=== PATIENT | female | born 1990 | race African-American/Black ===

== ENCOUNTER 2023-12-14 16:16 | Emergency (ER) | payer MEDICAID ==
[~2023-12-14] VITALS: Ht 162.6 cm; Wt 58.9 kg
[2023-12-14] VITALS (9 sets, daily range): BP systolic 106–120; BP diastolic 67–90
[~2023-12-14 16:16] MED LIST: PRENATAL + COMP1 PAK PO; ZOFRAN4 MG/TAB PO
[2023-12-14] MEDS ORDERED: ONDANSETRON HCl 4 MG/2 ML SDV IV ONE (18:00)
[2023-12-14] MEDS ORDERED: SODIUM CHLORIDE 0.9% 1,000 ML IV ONE (18:05)
[2023-12-14 18:09] LABS: BASO% 0.2 % (0-3); EOS% 1.1 % (0-8); HEMATOCRIT 34.6 % (37.0-47.0); HEMOGLOBIN 10.8 g/dl (12.0-16.0); IMMATURE GRANULOCYTES 0.3 % (0.0-5.0); LYMPH% 24.7 % (15-41); MEAN CELL VOLUME 89.4 fL CALC (80.0-100.0); MEAN CORPUSCULAR HGB 27.9 pG CALC (26.0-32.0); MEAN CORPUSCULAR HGB CONC 31.2 g/dL CAL (32.0-36.0); MONO% 7.8 % (2-13); NEUT# 6.53 thou/uL (2.00-7.15); NEUT% 65.9 % (42-76); RED BLOOD COUNT 3.87 mill/uL (4.20-5.60)
[2023-12-14 18:11] LABS: URINE BILIRUBIN - DIPSTICK Negative (NEGATIVE); URINE BLOOD DIPSTICK Negative (NEGATIVE); URINE GLUCOSE - DIPSTICK Negative (NEGATIVE); URINE KETONE Negative (NEGATIVE); URINE LEUK ESTERASE Trace (NEGATIVE); URINE NITRITE - DIPSTICK Negative (Negative); URINE PH 6.5 (4.5-8.0); URINE PROTEIN - DIPSTICK Negative (NEG-TRACE); URINE SPECIFIC GRAVITY 1.025; URINE UROBILINOGEN - DIPSTICK 0.2 E.U./dL (0.2)
[2023-12-14 18:12] LABS: URINE COLOR Yellow
[2023-12-14 18:23] LABS: CREATININE 0.5 mg/dL (0.5-1.0)
[2023-12-14 18:31] LABS: BILIRUBIN, TOTAL 1.3 mg/dL (0.02-1.3); POTASSIUM 4.8 mmol/l (3.5-5.1)
[2023-12-14] MEDS ORDERED: ZOFRAN4 MG/TAB PO (19:21)
== END 2023-12-14 19:39 | disposition home or self-care (01) ==
LOC: ED 16:16
PROVIDERS: Nurse Practitioner
DX: O26.899 Other specified pregnancy related conditions, unspecified trimester (principal); R11.2 Nausea with vomiting, unspecified; Z3A.00 Weeks of gestation of pregnancy not specified

== ENCOUNTER 2024-03-14 07:15 | Emergency (ER) | payer SELFPAY ==
[~2024-03-14] VITALS: Ht 162.6 cm; Wt 82.5 kg
[2024-03-14 08:03] VITALS: BP 137/92
== END 2024-03-14 08:05 | DRG 833 ==
LOC: ED 07:15
DX: O47.1 False labor at or after 37 completed weeks of gestation (principal); Z3A.40 40 weeks gestation of pregnancy